=== PATIENT | female | born 1970 | race Hispanic/Latino ===

== ENCOUNTER 2020-07-22 23:45 | Observation (INO) | payer MEDICAID ==
[~2020-07-22] VITALS: Ht 160 cm; Wt 81.2 kg
[2020-07-23 00:18] LABS: CREATININE 0.8 mg/dL (0.5-1.5); POTASSIUM 3.4 mmol/L (3.5-5.1)
[2020-07-23 00:23] LABS: ALBUMIN 3.9 g/dL (3.5-5.0); BILIRUBIN,TOTAL 0.4 mg/dL (0.2-1.0); TOTAL PROTEIN, SERUM 7.6 g/dL (6.0-8.3)
[2020-07-23 00:26] LABS: BASOPHILS % (AUTO) 0.4 % (0.0-5.0); EOSINOPHILS % (AUTO) 1.2 % (0.0-8.0); HEMATOCRIT 39.8 % (36-48); MEAN CORPUSCULAR HEMOGLOBIN 31.8 pg (27.0-33.0); MEAN CORPUSCULAR HGB CONC 32.7 g/dL (32.0-36.0); MEAN CORPUSCULAR VOLUME 97.3 fL (79-99); MONOCYTES % (AUTO) 6.8 % (3.0-13.0); NEUTROPHILS % (AUTO) 54.5 % (40.0-77.0); PLATELET COUNT (AUTO) 308 K/uL (130-400); RED BLOOD CELL COUNT(AUTO) 4.09 MIL/uL (4.00-5.50); RED CELL DISTRIBUTION WIDTH 12.3 % (11.0-15.5); WHITE BLOOD COUNT (AUTO) 7.3 K/uL (4.8-10.8)
[2020-07-23] MEDS ORDERED: MORPHINE SULFATE 2 MG/ML 1ML SYG ONE (03:43)
[2020-07-23] MEDS ORDERED: ONDANSETRON HCL 4 MG/2 ML VIAL ONE ×2 (03:43→09:28)
[2020-07-23] MEDS ORDERED: IOHEXOL 350 MG/ML 100ML INFUS..BTL IV ONE (04:14)
[2020-07-23] MEDS ORDERED: SODIUM CHLORIDE 0.9% 1000ML 1,000 ML IV ONE (06:54)
[2020-07-23] MEDS ORDERED: ONDANSETRON HCL 4 MG/2 ML VIAL IVP PRN (08:00)
[2020-07-23] MEDS ORDERED: DEXTROSE 50%-WATER 50 ML DISP.SYRIN IV PRN (08:00)
[2020-07-23] MEDS ORDERED: HYDRALAZINE HCL 20 MG/ML VIAL IV PRN (08:00)
[2020-07-23] MEDS ORDERED: POTASSIUM CHLORIDE 20MEQ/100ML 100 ML IV PRN (08:00)
[2020-07-23] MEDS: DEXTROSE 5%-LACTATED RINGERS 1,000 ML IV SCH ×2 (08:00→17:56)
[2020-07-23] MEDS ORDERED: ACETAMINOPHEN 650 MG SUPPOSITORY RC PRN (08:00)
[2020-07-23] MEDS ORDERED: GLUCAGON 1MG KIT 1 MG ML IM PRN (08:00)
[2020-07-23] MEDS ORDERED: LIDOCAINE HCL-MPF 1% 2ML VIAL IV PRN (08:00)
[2020-07-23] MEDS ORDERED: HYDROMORPHONE HCL 0.5 MG/0.5 ML ML IVP PRN (08:00)
[2020-07-23] MEDS: FAMOTIDINE/PF 20 MG/2 ML VIAL IV SCH ×2 (09:00→20:32)
[2020-07-23 09:19] LABS: INR 0.92 (0.85-1.15); PROTHROMBIN TIME 10.1 SEC (9.6-11.6)
[2020-07-23 09:20] LABS: PARTIAL THROMBOPLASTIN TIME 27.2 SEC (26.3-35.5)
[2020-07-23 09:26] LABS: CREATINE KINASE, TOTAL 92 U/L (21-232); MYOGLOBIN 39 ng/mL (10-92); TROPONIN I < 0.04 ng/mL (0.00-0.06)
[2020-07-23] MEDS ORDERED: FAMOTIDINE/PF 20 MG/2 ML VIAL IV ONE (09:28)
[2020-07-23] MEDS ORDERED: ZOSYN 3.375GM+NS 50ML 50 ML IV ONE (09:28)
[2020-07-23] MEDS ORDERED: HYDROMORPHONE HCL 0.5 MG/0.5 ML ML ONE (09:28)
[2020-07-23 10:07] LABS: APPEARANCE,URINE Clear (CLEAR); BILIRUBIN,URINE Negative (NEGATIVE); COLOR,URINE Yellow (YELLOW); GLUCOSE, URINE (UA) Negative (NEGATIVE); KETONES,URINE Negative (NEGATIVE); LEUKOCYTE ESTERASE ,URINE Negative (NEGATIVE); NITRATE,URINE Negative (NEGATIVE); OCCULT BLOOD,URINE Negative (NEGATIVE); PH,URINE 7.5 (5.0-8.0); PROTEIN,URINE Negative (NEGATIVE); UROBILINOGEN,URINE 0.2 mg/dL (0.2-1.0)
[2020-07-23 10:13] LABS: AMPHET/METH SCREEN,URINE NEGATIVE (NEGATIVE); BARBITURATE SCREEN, URINE NEGATIVE (NEGATIVE); BENZODIAZEPINES SCREEN,URINE NEGATIVE (NEGATIVE); CANNABINOID SCREEN,URINE NEGATIVE (NEGATIVE); COCAINE SCREEN,URINE NEGATIVE (NEGATIVE); OPIATE SCREEN,URINE POSITIVE (NEGATIVE); PHENCYCLIDINE SCREEN,URINE NEGATIVE (NEGATIVE)
[2020-07-23] MEDS ORDERED: DICYCLOMINE HCL 10 MG/ML 2ML AMP IM SCH (11:00)
[2020-07-23] MEDS ORDERED: POTASSIUM CHLORIDE 20MEQ/100ML 100 ML IV ONE (11:46)
[2020-07-23] MEDS ORDERED: LIDOCAINE HCL-MPF 1% 2ML VIAL ONE (11:48)
[2020-07-23] MEDS ORDERED: HYDROMORPHONE 1 MG/1 ML AMP IVP PRN (13:00)
[2020-07-23 13:35] VITALS: BP 157/75
[2020-07-23] MEDS: ZOSYN 3.375GM+NS 50ML 50 ML IV SCH ×2 (14:28→16:36)
[2020-07-23 14:40] LABS: CREATINE KINASE, TOTAL 82 U/L (21-232); MYOGLOBIN 39 ng/mL (10-92); TROPONIN I < 0.04 ng/mL (0.00-0.06)
[2020-07-23 16:38] VITALS: BP 137/68
[2020-07-23 19:38] VITALS: BP 152/74
[2020-07-23 20:15] LABS: CREATINE KINASE, TOTAL 77 U/L (21-232); MYOGLOBIN 45 ng/mL (10-92); TROPONIN I < 0.04 ng/mL (0.00-0.06)
[2020-07-23 23:30] VITALS: BP 158/73
[2020-07-24] MEDS: DEXTROSE 5%-LACTATED RINGERS 1,000 ML IV SCH ×2 (02:37→14:58)
[2020-07-24 03:39] VITALS: BP 154/90
[2020-07-24 05:41] LABS: BASOPHILS % (AUTO) 0.3 % (0.0-5.0); EOSINOPHILS % (AUTO) 1.4 % (0.0-8.0); HEMATOCRIT 40.1 % (36-48); LYMPHOCYTES % (AUTO) 17.8 % (21.0-51.0); MEAN CORPUSCULAR HEMOGLOBIN 31.4 pg (27.0-33.0); MEAN CORPUSCULAR HGB CONC 32.7 g/dL (32.0-36.0); MEAN CORPUSCULAR VOLUME 96.2 fL (79-99); MONOCYTES % (AUTO) 5.2 % (3.0-13.0); NEUTROPHILS % (AUTO) 74.9 % (40.0-77.0); PLATELET COUNT (AUTO) 280 K/uL (130-400); RED BLOOD CELL COUNT(AUTO) 4.17 MIL/uL (4.00-5.50); RED CELL DISTRIBUTION WIDTH 12.4 % (11.0-15.5); WHITE BLOOD COUNT (AUTO) 7.9 K/uL (4.8-10.8)
[2020-07-24 05:45] LABS: HEMOGLOBIN A1C 5.6 % (4.0-6.0)
[2020-07-24 05:48] LABS: CREATININE 0.9 mg/dL (0.5-1.5); PHOSPHORUS 2.8 mg/dL (2.5-4.9); POTASSIUM 3.8 mmol/L (3.5-5.1)
[2020-07-24 07:50] VITALS: BP 150/79
[2020-07-24] MEDS: ZOSYN 3.375GM+NS 50ML 50 ML IV SCH ×2 (08:59)
[2020-07-24] MEDS: FAMOTIDINE/PF 20 MG/2 ML VIAL IV SCH ×2 (09:00→21:12)
[2020-07-24 11:32] VITALS: BP 146/83
[2020-07-24 15:53] VITALS: BP 139/78
[2020-07-24 19:37] VITALS: BP 153/88
[2020-07-24 23:28] VITALS: BP 139/82
[2020-07-25] MEDS: ZOSYN 3.375GM+NS 50ML 50 ML IV SCH ×2 (00:05→08:21)
[2020-07-25 03:38] VITALS: BP 137/82
[2020-07-25] MEDS: DEXTROSE 5%-LACTATED RINGERS 1,000 ML IV SCH (04:06)
[2020-07-25 05:59] LABS: HEMATOCRIT 38.5 % (36-48); MEAN CORPUSCULAR HEMOGLOBIN 32.2 pg (27.0-33.0); MEAN CORPUSCULAR HGB CONC 33.8 g/dL (32.0-36.0); MEAN CORPUSCULAR VOLUME 95.3 fL (79-99); RED BLOOD CELL COUNT(AUTO) 4.04 MIL/uL (4.00-5.50); RED CELL DISTRIBUTION WIDTH 12.1 % (11.0-15.5); WHITE BLOOD COUNT (AUTO) 6.5 K/uL (4.8-10.8)
[2020-07-25 06:06] LABS: POTASSIUM 3.3 mmol/L (3.5-5.1)
[2020-07-25 08:00] VITALS: BP 129/79
[2020-07-25] MEDS: FAMOTIDINE/PF 20 MG/2 ML VIAL IV SCH (08:21)
[2020-07-25] MEDS ORDERED: POTASSIUM CHLORIDE 20MEQ/100ML 100 ML IV PRN (08:45)
[2020-07-25] MEDS ORDERED: POTASSIUM CHLORIDE 10% ELIXIR 20 MEQ/15 ML UDCUP PO PRN (08:45)
[2020-07-25] MEDS ORDERED: LIDOCAINE HCL-MPF 1% 2ML VIAL IV PRN (08:45)
[2020-07-25] MEDS ORDERED: AMOX-426 PO (10:06)
[2020-07-25] MEDS ORDERED: FAMO-136 PO (10:06)
[2020-07-25] MEDS: POTASSIUM CHLORIDE 20 MEQ ERTAB PO PRN ×3 (10:15→13:46)
[2020-07-25 12:00] VITALS: BP 141/82
== END 2020-07-25 15:15 | disposition home or self-care (01) ==
LOC: EDH 23:45 → EDHIP 23:46 → 3DH 07-23 13:34 → EDHIP 07-23 13:55 → 3DH 07-23 13:55
PROVIDERS: ADMIT Internal Medicine Critical Care Medicine; ATTEND Internal Medicine Critical Care Medicine
DX: K56.609 Unspecified intestinal obstruction, unspecified as to partial versus complete obstruction (principal); Z20.822 Contact with and (suspected) exposure to COVID-19; I10 Essential (primary) hypertension; E66.9 Obesity, unspecified; J45.909 Unspecified asthma, uncomplicated; F41.0 Panic disorder [episodic paroxysmal anxiety]; G47.30 Sleep apnea, unspecified; Z79.899 Other long term (current) drug therapy; Z68.31 Body mass index [BMI] 31.0-31.9, adult
CPT/HCPCS: 36415 ×3; 74018; 74177; 76705; 80048 ×2; 80053; 80061; 80305; 81003; 81025; 82550 ×3; 83036; 83690; 83735; 83874 ×3; 84100; 84484 ×3; 85025 ×2; 85027; 85610; 85730; 86850; 86900; 86901; 87040 ×2; 87088; 87426; 93005; 96361 ×2; 96365; 96366 ×3; 96375; 96376 ×2; 99285; G0378 ×55; J1170; J2405 ×2; J2543 ×7; J3480; J3490 ×8; J7030; Q9967; U0003

== ENCOUNTER 2021-04-14 12:44 | Emergency (ER) | payer MEDICAID ==
[~2021-04-14] VITALS: Ht 160 cm; Wt 80.3 kg
[~2021-04-14 12:44] MED LIST: AMOX-426 PO; FAMO-136 PO
[2021-04-14] MEDS ORDERED: 0.9%NACL 1000ML 1,000 ML IV ONE (13:00)
[2021-04-14 13:11] LABS: BASOPHILS % (AUTO) 0.1 % (0.0-5.0); EOSINOPHILS % (AUTO) 0.5 % (0.0-8.0); HEMATOCRIT 43.6 % (36-48); LYMPHOCYTES % (AUTO) 6.4 % (21.0-51.0); MEAN CORPUSCULAR VOLUME 96.9 fL (79-99); MONOCYTES % (AUTO) 3.4 % (3.0-13.0); NEUTROPHILS % (AUTO) 89.3 % (40.0-77.0); PLATELET COUNT (AUTO) 261 K/uL (130-400); RED CELL DISTRIBUTION WIDTH 12.5 % (11.0-15.5); WHITE BLOOD COUNT (AUTO) 13.2 K/uL (4.8-10.8)
[2021-04-14 13:22] LABS: POTASSIUM 4.2 mmol/L (3.5-5.1)
[2021-04-14 13:27] LABS: ALBUMIN 4.2 g/dL (3.5-5.0); BILIRUBIN,TOTAL 0.7 mg/dL (0.2-1.0); TOTAL PROTEIN, SERUM 8.2 g/dL (6.0-8.3)
[2021-04-14 14:11] VITALS: BP 139/82
[2021-04-14] MEDS ORDERED: ONDA4TAB10 PO (15:05)
[2021-04-14] MEDS ORDERED: DICY20TA2 PO (15:05)
== END 2021-04-14 15:23 | disposition home or self-care (01) ==
LOC: EDH 12:44
DX: A08.4 Viral intestinal infection, unspecified (principal); F41.9 Anxiety disorder, unspecified; F31.9 Bipolar disorder, unspecified
CPT/HCPCS: 36415; 80053; 82150; 83690; 85025; 96360; 96361; 99283; J7030

== ENCOUNTER 2022-11-17 13:32 | Emergency (ER) | payer MEDICAID ==
[~2022-11-17] VITALS: Ht 160 cm; Wt 80.7 kg
[~2022-11-17 13:32] MED LIST changes: +DICY20TA2 PO; +ONDA4TAB10 PO
[2022-11-17 14:02] LABS: BASOPHILS % (AUTO) 0.3 % (0.0-5.0); HEMATOCRIT 41.5 % (36-48); LYMPHOCYTES % (AUTO) 21.4 % (21.0-51.0); MEAN CORPUSCULAR HEMOGLOBIN 31.9 pg (27.0-33.0); MEAN CORPUSCULAR VOLUME 96.7 fL (79-99); MONOCYTES % (AUTO) 4.5 % (3.0-13.0); NEUTROPHILS % (AUTO) 72.5 % (40.0-77.0); PLATELET COUNT (AUTO) 232 K/uL (130-400); RED BLOOD CELL COUNT(AUTO) 4.29 MIL/uL (4.00-5.50); RED CELL DISTRIBUTION WIDTH 12.4 % (11.0-15.5)
[2022-11-17 14:12] LABS: INR 0.93 (0.85-1.15); PROTHROMBIN TIME 9.8 SEC (9.6-11.6)
[2022-11-17 14:13] LABS: CREATININE 0.8 mg/dL (0.5-1.5); PARTIAL THROMBOPLASTIN TIME 25.3 SEC (26.3-35.5); POTASSIUM 3.8 mmol/L (3.5-5.1)
[2022-11-17 14:16] LABS: APPEARANCE,URINE CLEAR (CLEAR); BILIRUBIN,URINE NEGATIVE (NEGATIVE); COLOR,URINE COLORLESS (YELLOW); GLUCOSE, URINE (UA) NEGATIVE (NEGATIVE); KETONES,URINE NEGATIVE (NEGATIVE); LEUKOCYTE ESTERASE ,URINE NEGATIVE Leu/uL (NEGATIVE); NITRATE,URINE NEGATIVE (NEGATIVE); OCCULT BLOOD,URINE NEGATIVE (NEGATIVE); PROTEIN,URINE NEGATIVE (NEGATIVE); UROBILINOGEN,URINE 0.2 mg/dL (0.2-1.0)
[2022-11-17 14:17] LABS: ALBUMIN 3.8 g/dL (3.5-5.0); TOTAL PROTEIN, SERUM 6.9 g/dL (6.0-8.3)
[2022-11-17 14:19] LABS: B-TYPE NATRIURETIC PEPTIDE 21 pg/mL (0-100)
[2022-11-17 16:08] VITALS: BP 127/78
== END 2022-11-17 17:37 | disposition home or self-care (01) ==
LOC: EDH 13:32
DX: R07.89 Other chest pain (principal); R94.31 Abnormal electrocardiogram [ECG] [EKG]
CPT/HCPCS: 36415; 71045; 80053; 81003; 82550; 83880; 84484; 85025; 85610; 85730; 93005

== ENCOUNTER → 2024-01-12 | Outpatient (CLI) | payer MEDICAID ==
[~2024-01-12] MED LIST changes: +ONDA-243 PO; -ONDA4TAB10 PO
== END | disposition home or self-care (01) ==
LOC: SHCH 08:48
PROVIDERS: ATTEND Internal Medicine Cardiovascular Disease
DX: I47.19 Other supraventricular tachycardia (principal)
CPT/HCPCS: 93306